=== PATIENT | male | born 1955 | race Caucasian/White ===

== ENCOUNTER 2020-02-06 17:40 | Outpatient (CLI) | payer OTHER ==
--- NOTE | 2020-02-06 17:42 | XRAY Report ---
PROCEDURE: Foot 3 View LT INDICATIONS: L FOOT PAIN TECHNIQUE: 3 views of the foot were acquired. COMPARISON: None FINDINGS: Bones: Mildly displaced fracture of the mid aspect of the fifth metatarsal. Incidental note made of c alcaneal bone spurs. Soft tissues: No tibiotalar joint effusion. Achilles tendon appears normal. IMPRESSION: Fifth metatarsal fracture. Reviewed by: Kasandra Palacios MD, PhD on 02/06/2020 5:41 PM PDT Approved by: Kasandra Palacios MD, PhD on 02/06/2020 5:41 PM PDT Station ID: [id number]
== END 2020-02-06 23:59 | disposition home or self-care (01) ==
LOC: DI.WCP 17:40
PROVIDERS: ATTEND Physician Assistant
DX: S92.352A Displaced fracture of fifth metatarsal bone, left foot, initial encounter for closed fracture (principal)

== ENCOUNTER 2020-12-17 08:00 | Outpatient (CLI) | payer OTHER ==
[2020-12-17 13:27] LABS: BASOPHILS % (AUTO) 0.6 %; EOSINOPHILS # (AUTO) 0.2 10^3/uL (0.0-0.7); EOSINOPHILS % (AUTO) 2.9 %; HCT - HEMATOCRIT 46.6 % (42.0-52.0); HGB - HEMOGLOBIN 15.8 g/dL (14.0-18.0); LYMPHOCYTES # (AUTO) 1.1 10^3/uL (1.5-3.5); MEAN CORPUSCULAR HEMOGLOBIN 33.7 pg (27.0-31.0); MEAN CORPUSCULAR HGB CONC 33.9 g/dL (32.0-36.0); MEAN CORPUSCULAR VOLUME 99.4 fL (80.0-94.0); MEAN PLATELET VOLUME 12.3 fL (7.4-11.4); MONOCYTES # (AUTO) 0.5 10^3/uL (0.0-1.0); NEUTROPHILS # (AUTO) 3.6 10^3/uL (1.5-6.6); NEUTROPHILS % (AUTO) 66.5 %; PLT - PLATELET COUNT 163 10^3/uL (130-450); RED BLOOD COUNT 4.69 10^6/uL (4.70-6.10); RED CELL DISTRIBUTION WIDTH 13.2 % (12.0-15.0); WHITE BLOOD COUNT 5.4 x10^3/uL (4.8-10.8)
[2020-12-17 13:49] LABS: ALBUMIN 4.4 g/dL (3.2-5.5); ALBUMIN/GLOBULIN RATIO 1.9 (1.0-2.2); ALKALINE PHOSPHATASE 55 IU/L (42-121); ALT ALANINE AMINOTRANSFERASE 16 IU/L (10-60); AST ASPARTATE AMINOTRANSFERASE 20 IU/L (10-42); BILIRUBIN,TOTAL 0.9 mg/dL (0.2-1.0); BUN - BLOOD UREA NITROGEN 27 mg/dL (6-20); CALCIUM 9.5 mg/dL (8.5-10.3); CARBON DIOXIDE - CO2 26 mmol/L (21-32); CHLORIDE 106 mmol/L (101-111); CHOL/HDL RATIO 2.6 (<5.0); CHOLESTEROL 143 mg/dL; CREATININE 0.9 mg/dL (0.6-1.2); GFR - MDRD 85 (>89); GLUCOSE 95 mg/dL (70-100); HDL CHOLESTEROL 55 mg/dL; LDL CHOLESTEROL,CALCULATED 71 mg/dL; LDL/HDL RATIO 1.3 (<3.6); SODIUM 142 mmol/L (135-145); TOTAL PROTEIN 6.7 g/dL (6.7-8.2); TRIGLYCERIDES 83 mg/dL; VLDL CHOLESTEROL 17 mg/dL
[2020-12-17 14:09] LABS: ESTIMATED AVERAGE GLUCOSE 105 mg/dL (70-100); HEMOGLOBIN A1c% 5.3 % (4.27-6.07)
== END 2020-12-17 23:59 | disposition home or self-care (01) ==
LOC: LAB.WCP 08:00
PROVIDERS: ATTEND Family Medicine
DX: I10 Essential (primary) hypertension (principal); R73.9 Hyperglycemia, unspecified
CPT/HCPCS: 36415; 80053; 80061; 83036; 83721; 85025

== ENCOUNTER 2021-01-21 11:00 | Outpatient (CLI) | payer OTHER ==
--- NOTE | 2021-01-21 12:31 | XRAY Report ---
PROCEDURE: Ankle 3 View RT INDICATIONS: R ANKLE PX TECHNIQUE: 3 weight bearing views of the ankle were acquired. COMPARISON: None FINDINGS: Bones: No acute fractures or dislocations. Ankle mortise is normally aligned. No suspicious bony l esions. There are degenerative changes of the tibiotalar joint and subtalar joint. Pes planus. Small plantar calcaneal and retrocalcaneal spurs. Mild dorsal midfoot degenerative changes. Chronic soft t issue calcifications involving the distal tibial-fibular syndesmosis likely sequela of remote injury. Soft tissues: No tibiotalar joint effusion. Achilles tendon appears normal. IMPRESSION: 1. No acute fracture or dislocation. 2. Findings suggestive of remote injury to the distal tibiofibular syndesmosis. 3. 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 4. Mild pes planus. 5. Small plantar calcaneal and retrocalcaneal spurring. If there is continued clinical concern for pathology or occult fracture, consider further evaluation with advanced imaging (CT, MRI, bone scan) if symptoms persist. Reviewed by: Brijesh Tamayo MD on 01/21/2021 12:30 PM PDT Approved by: Brijesh Tamayo MD on 01/21/2021 12:30 PM PDT Station ID: [id number]
== END 2021-01-21 23:59 | disposition home or self-care (01) ==
LOC: DI.N 11:00
PROVIDERS: ATTEND Physician Assistant
DX: M19.071 Primary osteoarthritis, right ankle and foot (principal); M21.41 Flat foot [pes planus] (acquired), right foot; M77.31 Calcaneal spur, right foot

== ENCOUNTER 2022-07-13 14:14 | Outpatient (CLI) | payer OTHER ==
--- NOTE | 2022-07-13 17:48 | CT Report ---
PROCEDURE: Low Dose Lung Cancer Screen INDICATIONS: HEAVY SMOKER TECHNIQUE: Noncontrast low-dose axial images were acquired from the pulmonary apices to the posterior costophren ic angles. Multiplanar MIP reformats were then reconstructed. For radiation dose reduction, the follo wing was used: automated exposure control, adjustment of mA and/or kV according to patient size. COMPARISON: None. FINDINGS: Image quality: Excellent. Lungs and pleura: There is a 3 mm noncalcified nodule in the right minor fissure (series 6 image 85) . There is is a 3 mm calcified nodule in the right upper lobe just above the minor fissure, compatible with an old granuloma. A 3 mm calcified nodule is also seen in the left lower lobe just behind the le ft major fissure, compatible with an old granuloma. Mediastinum: Heart size is normal. There is moderate coronary calcification. No pericardial effusio n. No mediastinal adenopathy by size criteria. Thoracic aorta and central pulmonary arteries are no rmal in size. Esophagus is normal in caliber. No hiatal hernia. Bones and chest wall: No suspicious bony lesions. No vertebral body compression fractures. No axil rhonda or supraclavicular adenopathy by size criteria. The thyroid is normal in size and there are no incidental findings. Abdomen: Probably parapelvic cyst in left kidney. Visualized upper abdomen solid organs and bowel loo ps appear normal in the absence of contrast. IMPRESSION: 1. Small calcified and noncalcified nodules are present. ACR lung RADS category 2. Recommend annual screening lung CT in 12 months. 2. Moderate coronary calcification consistent with osseous sclerosis. 3. Question parapelvic cyst in left kidney. Cannot rule out left hydronephrosis. Renal ultrasound is suggested for follow-up. Reviewed by: Tessy Wu MD on 07/13/2022 4:46 PM AKDT Approved by: Tessy Wu MD on 07/13/2022 4:46 PM AKDT Station ID: [id number]
== END 2022-07-13 14:15 | disposition home or self-care (01) ==
LOC: DI 14:14
PROVIDERS: ATTEND Nurse Practitioner Family
DX: Z12.2 Encounter for screening for malignant neoplasm of respiratory organs (principal); R91.8 Other nonspecific abnormal finding of lung field; F17.210 Nicotine dependence, cigarettes, uncomplicated

== ENCOUNTER 2022-08-17 11:14 | Outpatient (CLI) | payer OTHER ==
--- NOTE | 2022-08-17 14:02 | Ultrasound Report ---
PROCEDURE: Retroperitoneal INDICATIONS: RENAL CYST TECHNIQUE: Real-time scanning was performed of the retroperitoneal organs, with image documentation. COMPARISON: None. FINDINGS: Kidneys: Kidneys are normal in size. Right kidney measures 12.7 cm long; left kidney measures 14.1 cm long. Right renal cortical thickness is 1.4 cm; left renal cortical thickness is 1.8 cm. Nonobstr ucting stone in the inferior pole the right kidney measuring 8 mm. No hydronephrosis. No complex gregory l cystic lesions which require follow-up. Bladder: Pre-void bladder volume is 93 mL. Post-void residual is 0 mL. Pre-void images demonstrate no intraluminal masses or stones. On pre-void images, both ureteral jets are noted with color Doppl er interrogation. (Of note, ureteral jets may not be detectable in up to 25% of cases due to insuffi cient differences in specific gravity between ureteral and bladder urine). Miscellaneous: No free abdominal fluid. IMPRESSION: Nonobstructing right-sided renal cyst measuring up to 8 mm. Bilateral, noncomplex renal cystic lesions, including the left-sided parapelvic cyst. No further fol low-up indicated. Reviewed by: Milton Greer on 08/17/2022 2:01 PM PDT Approved by: Milton Greer on 08/17/2022 2:01 PM PDT Station ID: [id number]
== END 2022-08-17 11:15 | disposition home or self-care (01) ==
LOC: DI 11:14
PROVIDERS: ATTEND Nurse Practitioner Family
DX: N28.1 Cyst of kidney, acquired (principal); R91.8 Other nonspecific abnormal finding of lung field

== ENCOUNTER 2022-12-02 09:12 | Outpatient (CLI) | payer OTHER ==
[2022-12-02 12:18] LABS: BASOPHILS % (AUTO) 0.6 %; EOSINOPHILS # (AUTO) 0.3 10^3/uL (0.0-0.7); HCT - HEMATOCRIT 43.6 % (42.0-52.0); HGB - HEMOGLOBIN 14.5 g/dL (14.0-18.0); LYMPHOCYTES # (AUTO) 1.4 10^3/uL (1.5-3.5); LYMPHOCYTES % (AUTO) 21.5 %; MEAN CORPUSCULAR HEMOGLOBIN 31.9 pg (27.0-31.0); MEAN CORPUSCULAR HGB CONC 33.3 g/dL (32.0-36.0); MEAN CORPUSCULAR VOLUME 95.8 fL (80.0-94.0); MEAN PLATELET VOLUME 11.7 fL (7.4-11.4); MONOCYTES # (AUTO) 0.5 10^3/uL (0.0-1.0); MONOCYTES % (AUTO) 8.6 %; NEUTROPHILS # (AUTO) 4.1 10^3/uL (1.5-6.6); PLT - PLATELET COUNT 228 10^3/uL (130-450); RED BLOOD COUNT 4.55 10^6/uL (4.70-6.10); RED CELL DISTRIBUTION WIDTH 13.1 % (12.0-15.0); WHITE BLOOD COUNT 6.3 x10^3/uL (4.8-10.8)
[2022-12-02 12:58] LABS: ESTIMATED AVERAGE GLUCOSE 117 mg/dL (70-100); HEMOGLOBIN A1c% 5.7 % (4.27-6.07)
[2022-12-02 13:27] LABS: THYROID STIMULATING HORMONE 1.02 uIU/mL (0.34-5.60)
[2022-12-02 13:28] LABS: ALBUMIN 4.2 g/dL (3.2-5.5); ALBUMIN/GLOBULIN RATIO 1.5 (1.0-2.2); ALKALINE PHOSPHATASE 65 IU/L (42-121); ALT ALANINE AMINOTRANSFERASE 12 IU/L (10-60); AST ASPARTATE AMINOTRANSFERASE 15 IU/L (10-42); BILIRUBIN,TOTAL 0.7 mg/dL (0.2-1.0); BUN - BLOOD UREA NITROGEN 17 mg/dL (6-20); CALCIUM 10.1 mg/dL (8.5-10.3); CARBON DIOXIDE - CO2 30 mmol/L (21-32); CHLORIDE 103 mmol/L (101-111); CHOL/HDL RATIO 2.4 (<5.0); CHOLESTEROL 131 mg/dL; CREATININE 1.1 mg/dL (0.6-1.3); GFR - MDRD 67 (>89); GLUCOSE 92 mg/dL (74-104); HDL CHOLESTEROL 55 mg/dL; LDL CHOLESTEROL,CALCULATED 44 mg/dL; LDL/HDL RATIO 0.8 (<3.6); POTASSIUM 4.2 mmol/L (3.5-4.5); SODIUM 139 mmol/L (135-145); TRIGLYCERIDES 160 mg/dL (48-352); VLDL CHOLESTEROL 32 mg/dL
== END 2022-12-02 09:13 | disposition home or self-care (01) ==
LOC: LAB.N 09:12
PROVIDERS: ATTEND Nurse Practitioner Family
DX: I10 Essential (primary) hypertension (principal); R73.9 Hyperglycemia, unspecified; E78.5 Hyperlipidemia, unspecified; Z12.5 Encounter for screening for malignant neoplasm of prostate
CPT/HCPCS: 36415; 80053; 80061; 83036; 83721; 84153; 84443; 85025

== ENCOUNTER 2023-03-16 14:33 | Outpatient (CLI) | payer MEDICARE, OTHER | END 2023-03-16 14:34 | disposition home or self-care (01) | LOC: DI 14:33 | PROVIDERS: ATTEND Nurse Practitioner Family | DX: R01.1 Cardiac murmur, unspecified (principal); E78.5 Hyperlipidemia, unspecified; I11.9 Hypertensive heart disease without heart failure | CPT/HCPCS: 93306 ==

== ENCOUNTER 2023-07-15 11:39 | Outpatient (CLI) | payer MEDICARE, OTHER ==
--- NOTE | 2023-07-15 22:17 | CT Report ---
PROCEDURE: Chest WO INDICATIONS: LUNG NODULE TECHNIQUE: A CT scan of the chest was performed. Intravenous contrast media was not administered. Images were re corded and evaluated at appropriate window settings. Reformats: axial MIP of the chest, coronal and s agittal. For radiation dose reduction, the following was used: automated exposure control, adjustment of mA and/or kV according to patient size. COMPARISON: 07/13/2022. FINDINGS: Image quality: Diagnostic. Chest wall and lower neck: No thyroid nodule which requires sonographic follow up. No axillary or sup raclavicular adenopathy by size. Lungs and pleura: There are new patchy ill-defined groundglass opacities scattered throughout the laurel ateral hemithoraces. These are somewhat more predominant peripherally. A few areas suggestive of smal l tree-in-bud opacities peripherally. There is also minimal bronchiectasis which also appear to paral lel areas of groundglass opacities. No evidence for subpleural scarring. No evidence for honeycombing /fibrosis. No septal thickening or nodularity. Multiple tiny punctate calcified pulmonary granulomas are unchanged. Stable 3 mm right middle lobe pulmonary nodule (59/series 4). No pleural effusions. No pneumothorax. Moderate atherosclerotic calcifications of the coronary arteries. Atherosclerosis of the aortic arch. Mediastinum: Heart size is normal. No pericardial effusion. No large vessel abnormality. No mediastin al adenopathy by size criteria. Bones: No aggressive osseous abnormality. Upper Abdomen: Persistent mild prominence of the left renal pelvis possibly representing a peripelvic cyst. Small hiatal hernia. Other visualized upper abdominal structures are unremarkable. IMPRESSION: 1. Interval development of numerous patchy ill-defined predominantly peripheral groundglass opacities and suggestion of more peripheral small tree-in-bud opacities. No dense consolidations. No septal th ickening or nodularity. Findings may represent an infectious or inflammatory process although hyperse nsitivity pneumonitis may have a similar appearance. Additionally, minimal bronchiectasis is noted in the regions of groundglass opacities. Recommend clinical correlation and short interval follow-up ch est CT in 3 months to document stability versus resolution. 2. Stable 3 mm right middle lobe pulmonary nodule. Numerous scattered calcified pulmonary granulomas are also stable. 3. Moderate atherosclerotic vascular calcifications. Reviewed by: Brijesh Tamayo MD on 07/15/2023 9:15 PM AKDT Approved by: Brijesh Tamayo MD on 07/15/2023 9:15 PM ARACELI Station ID: [id number]
== END 2023-07-15 11:40 | disposition home or self-care (01) ==
LOC: DI 11:39
PROVIDERS: ATTEND Nurse Practitioner Family
DX: R91.8 Other nonspecific abnormal finding of lung field (principal); J47.9 Bronchiectasis, uncomplicated; I25.10 Atherosclerotic heart disease of native coronary artery without angina pectoris; F17.210 Nicotine dependence, cigarettes, uncomplicated

== ENCOUNTER 2024-01-26 12:43 | Outpatient (CLI) | payer MEDICARE, OTHER ==
--- NOTE | 2024-01-27 11:03 | CT Report ---
PROCEDURE: Chest WO INDICATIONS: ABN CHEST CT TECHNIQUE: A CT scan of the chest was performed. Intravenous contrast media was not administered. Images were re corded and evaluated at appropriate window settings. Reformats: axial MIP of the chest, coronal and s agittal. For radiation dose reduction, the following was used: automated exposure control, adjustment of mA and/or kV according to patient size. COMPARISON: CT chest on July 15, 2023 and July 13, 2022. FINDINGS: Image quality: Diagnostic. Chest wall and lower neck: No thyroid nodule which requires sonographic follow up. No axillary or sup raclavicular adenopathy by size. Lungs and pleura: No consolidation. No pleural effusions. No pneumothorax. Compared to CT chest date d July 15, 2023, no new or enlarging pulmonary nodules or consolidation. Previously seen ill-defined predominantly peripheral groundglass opacities have resolved. A few scattered, solid noncalcified pu lmonary nodules. Index nodules: -Right upper lobe with subtle central cavitation, measures 3 mm, stable (4/28). -Right lower lobe solid, noncalcified, measures 2 mm, stable (4/30). -Left lower lobe solid, noncalcified, measures 3 mm, stable (4/64). A few scattered subcentimeter calcified granulomas. Patent central airways. Mild apical predominant p araseptal emphysema. Mediastinum: Heart size is normal. No pericardial effusion. No large vessel abnormality. No mediastin al adenopathy by size criteria. Mild calcification of the thoracic aorta. Moderate three-vessel radha nary calcification. Bones: No aggressive osseous abnormality. No acute fractures. [id number] multilevel degenerativ e changes of the spine. Upper Abdomen: Partially visualized left sided parapelvic cyst (2/116), stable. Mild calcification of the abdominal aorta. IMPRESSION: 1.Compared to CT chest dated July 15, 2023, no new or enlarging pulmonary nodule or consolidation. P reviously seen ill-defined predominantly peripheral groundglass opacities have resolved compatible wi th infection and/or inflammation. 2.A few scattered, solid, noncalcified pulmonary nodules are stable. If patient meets criteria, consi lisa an annual low-dose chest CT. 3.Mild emphysema. 4.Moderate three-vessel coronary vessel calcifications. Reviewed by: Jacoby Hubbard MD on 01/27/2024 11:02 AM PDT Approved by: Jacoby Hubbard MD on 01/27/2024 11:02 AM PDT Station ID: [id number]
== END 2024-01-26 12:44 | disposition home or self-care (01) ==
LOC: DI 12:43
PROVIDERS: ATTEND Nurse Practitioner Family
DX: R91.8 Other nonspecific abnormal finding of lung field (principal); J43.9 Emphysema, unspecified; I25.10 Atherosclerotic heart disease of native coronary artery without angina pectoris